=== PATIENT | female | born 2000 | race Two or more races ===

== ENCOUNTER → 2019-11-11 | Outpatient (CLI) | payer SELFPAY ==
--- NOTE | 2019-11-11 14:40 | RADIOLOGY REPORT (SQ) ---
EXAM DESCRIPTION: U/S OB 14+ TRNABD 1GES W/O DOP IMAGES COMPLETED DATE/TIME: 11/11/2019 2:30 pm REASON FOR STUDY: (Z34.02)ENCNTR FOR SUPRVSN OF NORMAL FIRST PREG, SECOND TRIMESTER Z34.02 ENCNTR F OR SUPRVSN OF NORMAL FIRST PREG, SECOND TRIME COMPARISON: 09/20/2019 TECHNIQUE: Static and Dynamic grayscale imaging performed of gravid uterus using transabdominal appr oac. Additional selected color Doppler and spectral images recorded. All stored on PACS. LIMITATIONS: None. FINDINGS: FETUSES SEEN:1 EGA: 19 weeks 2 days. Calculated using BPD,FL,HC,AC documented on images. No discrepancy with clinic al dates. NO: 04/04/2020 EFW: 276 grams PERCENTILE: Not applicable. Fetus less than or equal to 20 weeks gestation. LVP: 5.0 x 5.0 cm. PLACENTA: Posterior in location. GRADE: I PRESENTATION: Variable. ANATOMY: HEART RATE: 147 beats per minute. FOUR CHAMBER HEART: Visualized. THREE VESSEL CORD: Yes. CORD INSERTION: Visualized. KIDNEYS AND BLADDER: Visualized. Appear normal. STOMACH: Visualized. Appears normal. SPINE: Normal as visualized. BRAIN AND LATERAL VENTRICLES: Visualized. Appear normal. OTHER: No other significant finding. MATERNAL ADNEXA: Maternal ovaries not visualized. CERVICAL LENGTH: 3.2 cm. Closed. OTHER: No other significant finding. IMPRESSION: LIVING INTRAUTERINE . ESTIMATED GESTATIONAL AGE 19 WEEKS 2 DAYS. NO VISUALIZED ANOMALIES. Trimester of : Second trimester - 13 weeks 1 day to 27 weeks 6 days. TECHNICAL DOCUMENTATION: JOB ID: [id number] 2010 [employer]- All Rights Reserved Reading location - IP/workstation name: [email or web address]
== END ==
LOC: RAD 13:40
PROVIDERS: ATTEND Midwife
DX: Z34.02 Encounter for supervision of normal first pregnancy, second trimester (principal); Z3A.19 19 weeks gestation of pregnancy
CPT/HCPCS: 76805

== ENCOUNTER → 2020-03-20 | Outpatient (CLI) | payer SELFPAY ==
--- NOTE | 2020-03-20 16:19 | RADIOLOGY REPORT (SQ) ---
EXAM DESCRIPTION: U/S OB 14+ TRNABD 1GES W/O DOP IMAGES COMPLETED DATE/TIME: 03/20/2020 3:11 pm REASON FOR STUDY: (Z34.03)ENCNTR FOR SUPRVSN OF NORMAL FIRST PREG, THIRD TRIMESTER Z34.03 ENCNTR FO R SUPRVSN OF NORMAL FIRST PREG, THIRD TRIMES COMPARISON: 11/11/2019 TECHNIQUE: Static and Dynamic grayscale imaging performed of gravid uterus using transabdominal appr oach. Additional selected color Doppler and spectral images recorded. All stored on PACS. LIMITATIONS: None. FINDINGS: FETUSES SEEN:1 EGA: 35 weeks 2 days Calculated using BPD,FL,HC,AC documented on images. 2 weeks 2 days less than wo uld be expected from the clinical dates. NO: 04/22/2020 EFW: 2,756 grams PERCENTILE: 22nd ALICIA: 9.2 cm LVP: 4.5 x 2.7 cm PLACENTA: Posterior grade 2 PRESENTATION: Cephalic. ANATOMY: HEART RATE: 147 beats per minute. anatomy was not evaluated. MATERNAL ADNEXA: Maternal ovaries not visualized. CERVICAL LENGTH: Not seen. OTHER: No other significant finding. IMPRESSION: Living intrauterine gestation of 35 weeks 2 days. This lags behind clinical gestational age by 2 weeks 2 days. Trimester of : Third trimester - 28 weeks to delivery. TECHNICAL DOCUMENTATION: JOB ID: [id number] 2010 [employer]- All Rights Reserved Reading location - IP/workstation name: [email or web address]
== END ==
LOC: RAD 14:48
PROVIDERS: ATTEND Midwife
DX: Z34.03 Encounter for supervision of normal first pregnancy, third trimester (principal); Z3A.35 35 weeks gestation of pregnancy
CPT/HCPCS: 76805